=== PATIENT | female | born 1980 | race Caucasian/White ===

== ENCOUNTER 2016-02-07 12:55 | Outpatient (RCR) | payer BC ==
--- NOTE | 2016-02-05 19:14 | Diagnostic Imaging Report ---
EXAMINATION: KUB. INDICATION: Right-sided stones. COMPARISON: 02/04/15. FINDINGS: There is a 7 mm left flank lesion, likely a kidney stone. A 3 mm mid right kidney stone is also suspected. There is a calcification in the left side of the pelvis near the expected location of the ureterovesical junction. It is uncertain if its in the distal ureter or related to an overlying phlebolith. Surgical clips in the upright abdomen are seen. IMPRESSION: Suggestion of bilateral kidney stones and questionable distal left ureteric stone. Dictated by: Dictated on workstation # [id number]
[~2016-02-07 12:55] MED LIST: ACHYD1T PO; CALC500T7 PO; HYDR1TAB75 PO; HYOS0.1216 PO; IBP800T PO; NITR100C44 PO; OMEP20TA2 PO; ONDA4TAB2 PO; OXYC-12 PO; OXYC-200 PO; PHEN200T27 PO; PREN1TAB39 PO; SCR1T PO
[2016-02-12 22:41] LABS: STONE RISK AMMONIUM 22 mEq/24hr (14-62); STONE RISK CA OXALATE 2.42 (< 2.00); STONE RISK CALCIUM 126 mg/day (< 250); STONE RISK CITRATE 47 mg/day (> 320); STONE RISK CREATININE 1298 mg/day (600-1800); STONE RISK MAGNESIUM 50 mg/day (> 60); STONE RISK OXALATE 30 mg/day (< 45); STONE RISK PH 6.8 (5.5-7.0); STONE RISK PHOSPHOROUS 935 mg/day (< 1100); STONE RISK POTASSIUM 36 mEq/24hr (19-135); STONE RISK SODIUM 118 mEq/24hr (< 200); STONE RISK SODIUM URATES 3.55 (< 2.00); STONE RISK STRUVITE 10.55 (< 75.00); STONE RISK SULFITE 11 mmol/day (< 30); STONE RISK TOTAL VOLUME 1.09 L/day (> 2.00); STONE RISK URIC ACID 445 mg/day (< 700); STONE RISK URIC ACID SAT 0.32 (< 2.00)
== END 2016-02-10 08:57 | disposition home or self-care (01) ==
LOC: RAD 12:55
PROVIDERS: ATTEND Urology
DX: N20.9 Urinary calculus, unspecified (principal)
CPT/HCPCS: 36415; 74000; 82140; 82340; 82507; 82570; 83735; 83945; 83986; 84105; 84133; 84300; 84392; 84560

== ENCOUNTER → 2016-02-12 | Outpatient (CLI) | payer BC ==
--- NOTE | 2016-02-12 09:12 | Diagnostic Imaging Report ---
PROCEDURE: CT urinary tract, rule out kidney stone. TECHNIQUE: Multiple contiguous axial images were obtained through the abdomen and pelvis without the use of intravenous contrast. INDICATION: Nephrolithiasis. FINDINGS: The lung bases are clear. Liver appears normal. The gallbladder is surgically absent. The pancreas appears normal. Spleen is not enlarged. Adrenals appear normal. There are several stones in the right kidney. Right kidney is normal in size. There is no hydronephrosis. Left kidney is present. It is severely atrophied. There are calculi in upper and lower pole calyces of left kidney. There is also a stone in the distal left ureter at ureterovesical junction that measures 4 mm in diameter. There is some air in the urinary bladder. Uterus is present. Adnexa are unremarkable. Large and small intestines appear normal. Appendix is normal. IMPRESSION: Bilateral nephrolithiasis. Largest stone on the right kidney measures 5 mm in diameter. Largest stone on the left kidney measures 4 mm in diameter. Left kidney is severely atrophied and there is a calculus in the distal left ureter at the ureterovesical junction. There is no hydronephrosis in either kidney. Dictated by: Dictated on workstation # [id number]
== END ==
LOC: RAD 08:43
PROVIDERS: ATTEND Urology
DX: N20.0 Calculus of kidney (principal)
CPT/HCPCS: 74176

== ENCOUNTER → 2016-04-12 | Outpatient (CLI) | payer BC ==
--- OUTSIDE RECORDS SUMMARY | 2016-04-12 10:41 | XMS REPORT | Continuity of Care Document ---
Author Author [facility] Organization [facility] Address Unknown Phone Unavailable Allergies Active Description Code Type Severity Reaction Onset Reported/Identified Relationship to Patient Clinical Status Yes No Known Drug Allergies [id number] Drug Allergy Unknown N/ A 07/14/2007 Medications Problems Date Dx Coded Attending Type Code Diagnosis Diagnosed By 02/18/2008 Ot 592.1 02/18/2008 Ot 789.01 09/16/2010 Ot 648.91 09/16/2010 Ot 663.31 09/16/2010 Ot 664.01 09/16/2010 Ot V02.51 09/16/2010 Ot V27.0 12/20/2013 NATHANIEL WOMACK, JACOB Pennington Ot 587 12/20/2013 NATHANIEL WOMACK, JACOB Pennington Ot 789.06 03/26/2014 LAISHA WOMACK, JANUARY Vela Ot 592.0 CALCULUS OF KIDNEY 03/26/2014 LAISHA WOMACK, JANUARY Vela Ot 592.1 CALCULUS OF URETER 03/26/2014 LAISHA WOMACK, JANUARY Vela Ot 593.9 RENAL URETERAL DIS NOS 04/29/2014 LAISHA WOMACK, JANUARY Vela Ot 592.9 04/30/2014 LAISHA WOMACK, JANUARY A Ot 592.0 04/30/2014 LAISHA WOMACK, JANUARY A Ot 592.1 04/30/2014 LAISHA WOMACK, JANUARY Vela Ot V72.63 04/30/2014 LAISHA WOMACK, JANUARY Vela Ot V74.8 04/30/2014 LAISHA WOMACK, JANUARY Vela Ot 592.9 04/30/2014 LAISHA WOMACK, JANUARY A Ot 592.0 04/30/2014 LAISHA WOMACK, JANUARY Vela Ot 592.1 04/30/2014 LAISHA WOMACK, JANUARY Vela Ot V72.63 04/30/2014 LAISHA WOMACK, JANUARY Vela Ot V74.8 04/30/2014 Ot 592.9 04/30/2014 Ot 587 04/30/2014 Ot 592.1 04/30/2014 LAISHA WOMACK, JANUARY Vela Ot 592.9 04/30/2014 Ot 825.25 04/30/2014 Ot E849.0 04/30/2014 Ot E928.9 04/30/2014 Ot 789.00 04/30/2014 Ot 789.00 04/30/2014 Ot 592.9 04/30/2014 Ot 592.1 04/30/2014 Ot V45.89 05/17/2014 LAISHA WOMACK, JANUARY Vela Ot 592.0 05/17/2014 LAISHA WOMACK, JANUARY Vela Ot 592.1 05/17/2014 LAISHA WOMACK, JANUARY Vela Ot V72.63 05/17/2014 LAISHA WOMACK, JANUARY Vela Ot V74.8 05/17/2014 LAISHA WOMACK, JANUARY Vela Ot 592.0 05/17/2014 LAISHA WOMACK, JANUARY Vela Ot 592.1 05/17/2014 LAISHA WOMACK, JANUARY Vela Ot V72.63 05/17/2014 LAISHA WOMACK, JANUARY Vela Ot V74.8 05/17/2014 Ot 592.1 05/17/2014 Ot V45.89 05/17/2014 Ot 587 05/17/2014 Ot 592.1 05/24/2014 LAISHA WOMACK, JANUARY Vela Ot 592.9 05/29/2014 LAISHA WOMACK, JANUARY Vela Ot 592.0 05/29/2014 LAISHA WOMACK, JANUARY Vela Ot 592.1 05/29/2014 LAISHA WOMACK, JANUARY Vela Ot V72.63 05/29/2014 LAISHA WOMACK, JANUARY Vela Ot V74.8 05/29/2014 Ot 592.1 05/29/2014 Ot V45.89 05/29/2014 Ot 587 05/29/2014 Ot 592.1 07/10/2014 LAISHA WOMACK, JANUARY Vlea Ot 592.9 URINARY CALCULUS NOS 02/04/2015 LAISHA WOMACK, JANUARY Vela Ot 592.0 02/04/2015 LAISHA WOMACK, JANUARY Vela Ot 592.1 02/04/2015 LAISHAJANUARY VARNER MD Ot V72.63 02/04/2015 JANUARY INTERIANO MD Ot V74.8 02/04/2015 Ot 592.9 02/04/2015 Ot 592.1 02/04/2015 Ot V45.89 02/04/2015 Ot 587 02/04/2015 Ot 592.1 02/04/2015 LAISHA WOMACK, JANUARY Vela Ot 592.9 02/05/2015 LAISHA WOMACK, JANUARY Vela Ot N20.9 03/05/2015 JANUARY INTERIANO MD Ot 592.0 03/05/2015 LAISHA WOMACK, JANUARY Vela Ot 592.1 03/05/2015 JANUARY INTERIANO MD Ot V72.63 03/05/2015 JANUARY INTERIANO MD Ot V74.8 03/05/2015 Ot 592.9 03/05/2015 Ot 592.1 03/05/2015 Ot V45.89 03/05/2015 Ot 587 03/05/2015 Ot 592.1 03/05/2015 JANUARY INTERIANO MD Ot N20.9 03/12/2015 Ot 592.9 05/05/2015 JANUARY INTERIANO MD Ot N20.9 URINARY CALCULUS, UNSPECIFIED 02/05/2016 JANUARY INTERIANO MD Ot 592.0 CALCULUS OF KIDNEY 02/05/2016 JANUARY INTERIANO MD Ot 592.1 CALCULUS OF URETER 02/05/2016 JANUARY INTERIANO MD Ot V72.63 PRE-PROCEDURAL LABORATORY EXAMINATION 02/05/2016 JANUARY INTERIANO MD Ot V74.8 SCREEN-BACTERIAL DIS NEC 02/05/2016 Ot 592.9 URINARY CALCULUS NOS 02/05/2016 Ot 592.1 CALCULUS OF URETER 02/05/2016 Ot V45.89 POSTSURGICAL STATES NEC 02/05/2016 Ot 587 RENAL SCLEROSIS NOS 02/05/2016 Ot 592.1 CALCULUS OF URETER 02/05/2016 JANUARY INTERIANO MD Ot N20.9 URINARY CALCULUS, UNSPECIFIED 02/05/2016 JANUARY INTERIANO MD Ot 592.0 CALCULUS OF KIDNEY 02/05/2016 JANUARY INTERIANO MD Ot 592.1 CALCULUS OF URETER 02/05/2016 JANUARY INTERIANO MD, Ot V72.63 PRE-PROCEDURAL LABORATORY EXAMINATION 02/05/2016 JANUARY INTERIANO MD, Ot V74.8 SCREEN-BACTERIAL DIS NEC 02/05/2016 Ot 592.9 URINARY CALCULUS NOS 02/05/2016 Ot 592.1 CALCULUS OF URETER 02/05/2016 Ot V45.89 POSTSURGICAL STATES NEC 02/05/2016 Ot 587 RENAL SCLEROSIS NOS 02/05/2016 Ot 592.1 CALCULUS OF URETER 02/05/2016 JANUARY INTERIANO MD Ot N20.9 URINARY CALCULUS, UNSPECIFIED 02/10/2016 JANUARY INTERIANO MD Ot N20.9 URINARY CALCULUS, UNSPECIFIED 02/12/2016 JANUARY INTERIANO MD Ot N20.0 CALCULUS OF KIDNEY 02/13/2016 JANUARY INTERIANO MD Ot N20.0 CALCULUS OF KIDNEY 02/25/2016 JANUARY INTERIANO MD Ot N20.0 CALCULUS OF KIDNEY 02/25/2016 JANUARY INTERIANO MD Ot N20.0 CALCULUS OF KIDNEY Procedures Results Test Result Range CD3+CD4+ (T4 helper) cells/100 cells in blood - 02/07/16 12:15 Timed urine calcium measurement (mass/volume) 126 % < 250 Urine oxalate detection 30 < 45 Urine uric acid measurement (mass/volume) 445 % < 700 Urine citrate measurement (mass/volume) 47 % > 320 Urine pH measurement 6.8 5.5-7.0 24 hour urine specimen volume measurement 1.09 % > 2.00 Sodium urate/total calculus mass ratio by infrared spectroscopy 118 % < 200 Sulfites [presence] in urine by test strip 11 < 30 Urine phosphate measurement (mass/volume) 935 % < 1100 Urine magnesium measurement (mass/volume) 50 % > 60 Urine calcium oxalate measurement 2.42 < 2.00 Urine calcium phosphate crystals detection by computer assisted method 5.80 < 2.00 24 hour urine sodium urate (saturation fraction) 3.55 < 2.00 Triple phosphate crystals detection in urine sediment by light microscopy 10.55 < 75.00 24 hour urine uric acid (saturation fraction) 0.32 < 2.00 Urine ammonium measurement 22 % 14-62 Urine potassium measurement 36 % 19-135 24 hour urine creatinine measurement (mass/time) 1298 % 600-1800 Clinical label tacker review of results See Below NRG Encounters ACCT No. Visit Date/Time Discharge Status Pt. Type Provider Facility Loc./Unit Complaint [id number] 02/07/2016 12:55:00 2016 08:57:00 DIS Outpatient JANUARY INTERIANO MD [facility] RAD STONES [id number] 02/06/2015 12:30:00 2015 00:01:00 DIS Outpatient JANUARY INTERIANO MD [facility] LAB STONES [id number] 04/11/2014 15:28:00 2014 00:01:00 DIS Outpatient JANUARY INTERIANO MD [facility] LAB STONES [id number] 03/26/2014 06:56:00 2014 23:59:59 CLS Outpatient JANUARY INTERIANO MD [facility] SDC BILATERAL URETERAL AND RENAL STONES [id number] 03/25/2014 14:27:00 2014 23:59:59 CLS Outpatient JANUARY INTERIANO MD [facility] PREOP RIGHT RENAL STONE [id number] 12/20/2013 11:21:00 2013 16:12:00 DIS Emergency JACOB ARMSTRONG MD [facility] ER [id number] 02/12/2016 08:43:00 ACT Outpatient JANUARY INTERIANO MD [facility] RAD BILAT KIDNEY STONES [id number] 05/06/2015 00:08:00 PEN Preadmit JANUARY INTERIANO MD [facility] LAB STONES [id number] 04/30/2014 12:50:00 Document Registration [id number] 04/30/2014 12:50:00 Document Registration [id number] 04/30/2014 12:50:00 Document Registration [id number] 04/30/2014 12:50:00 Document Registration [id number] 04/11/2014 15:22:00 Document Registration [id number] 04/08/2014 13:30:00 Document Registration [id number] 03/25/2014 12:05:00 Document Registration [id number] 09/14/2010 09:15:00 Document Registration [id number] 02/18/2008 15:49:00 Document Registration [id number] 03/25/2006 14:40:00 Document Registration [id number] 03/25/2006 10:15:00 Document Registration [id number] 06/23/2005 21:13:00 Document Registration
--- NOTE | 2016-04-13 19:57 | Diagnostic Imaging Report ---
Digital mammogram bilateral screening. This is the patient's baseline study. At this time, there are no current complaints. The current study was also evaluated with a Computer Aided Detection (CAD) system. FINDINGS: There are scattered fibroglandular densities in both breasts which could obscure a lesion. There is no primary or secondary sign of malignancy noted. IMPRESSION: 1. There is no evidence for malignancy. 2. The patient should have her annual bilateral screening mammogram on schedule in April of 2017. ACR BI-RADS Category 1: Negative. Result letter will be mailed to the patient. Note: At least 10% of breast cancer is not imaged by mammography. Dictated by: Dictated on workstation # [id number]
== END ==
LOC: RAD 10:36
PROVIDERS: ATTEND Obstetrics & Gynecology
DX: Z12.31 Encounter for screening mammogram for malignant neoplasm of breast (principal)
CPT/HCPCS: 77067

== ENCOUNTER 2017-01-27 15:47 | Outpatient (RCR) | payer BC ==
[2017-02-10] MEDS ORDERED: POTA15TA9 PO (14:40)
[2017-02-16] MEDS ORDERED: NITR-68 PO (10:15)
[2017-02-16] MEDS ORDERED: HYDR-3870 PO (10:15)
[2017-02-16] MEDS ORDERED: TAMS0.4C98 PO (10:15)
== END 2017-04-27 | disposition home or self-care (01) ==
LOC: LAB 15:47
PROVIDERS: ATTEND Urology
DX: Z87.442 Personal history of urinary calculi (principal)
CPT/HCPCS: 36415; 82140; 82340; 82507; 82570; 83735; 83945; 83986; 84105; 84133; 84300; 84392; 84560

== ENCOUNTER → 2017-01-27 | Outpatient (CLI) | payer BC ==
--- NOTE | 2017-01-27 16:37 | Diagnostic Imaging Report ---
INDICATION: Nephrolithiasis. FINDINGS: There is a cluster of calcifications projecting over the inferior pole of the left kidney measuring 4 mm in diameter and a 1.5 mm calcification projecting over the upper pole of the left kidney. There is a 2 mm calcification projecting over the mid right kidney. There is a 4 mm calcification projecting over the upper pole of the right kidney. IMPRESSION: Probable bilateral nephrolithiases. Dictated by: Dictated on workstation # [id number]
== END ==
LOC: RAD 15:41
PROVIDERS: ATTEND Urology
DX: N20.0 Calculus of kidney (principal)
CPT/HCPCS: 74000

== ENCOUNTER 2017-02-10 14:34 | Outpatient (CLI) | payer BC ==
[~2017-02-10] VITALS: Ht 160 cm; Wt 72.6 kg
[2017-02-10] MEDS ORDERED: POTA15TA9 PO (14:40)
== END 2017-02-10 14:47 ==
LOC: PREOP 14:34
PROVIDERS: ATTEND Urology
DX: Z01.818 Encounter for other preprocedural examination (principal); N20.0 Calculus of kidney

== ENCOUNTER 2017-02-16 07:42 | Day surgery (SDC) | payer BC ==
[~2017-02-16] VITALS: Ht 160 cm; Wt 72.6 kg
--- NOTE | 2017-02-16 07:07 | Progress Note-Pre Operative ---
Pre-Operative Progress Note H&P Reviewed The H&P was reviewed, patient examined and no changes noted. Date Seen by Provider: Feb 16, 2017 Time Seen by Provider: 07:07 Date H&P Reviewed: Feb 16, 2017 Time H&P Reviewed: 07:07 Pre-Operative Diagnosis: RT RENAL STONE JANUARY INTERIANO MD Feb 16, 2017 7:07 am
--- NOTE | 2017-02-16 07:08 | Progress Note-Post Operative ---
Post-Operative Progess Note Surgeon (s)/Cap Blocker (s) Surgeon JANUARY INTERIANO MD Cap Blocker: N/A Pre-Operative Diagnosis RT RENAL STONE Post-Operative Diagnosis SAME Procedure & Operative Findings Date of Procedure 02/16/17 Procedure Performed/Findings RT ESWL Anesthesia Type GENERAL Estimated Blood Loss Estimated blood loss (mL): N/A Specimens/Packing Specimens Removed N/A Packing: N/A JANUARY INTERIANO MD Feb 16, 2017 7:08 am
--- NOTE | 2017-02-16 07:09 | Discharge Inst-Urology ---
Discharge Inst-Urology Discharge Medications New, Converted, or Re-newed RX: RX on Chart Patient Instructions/Follow Up Plan Please make appointment to been seen in office in 2 weeks. KUB prior to it KUB on way home Post ESWL instructions Increase oral fluids for 48 hours and then as needed. Diet and Activity as tolerated. If questions or concerns contact your physician Or seek help at emergency department. JANUARY INTERIANO MD Feb 16, 2017 7:09 am
[~2017-02-16 07:42] MED LIST changes: +POTA15TA9 PO
[2017-02-16] MEDS ORDERED: LACTATED RINGERS 1,000 ML IV PRN ×2 (07:52→08:22)
[2017-02-16] MEDS ORDERED: ceFAZolin INJECTION 1,000 MG in NS (IVPB) 50 ML IV ONE (08:00)
[2017-02-16 08:05] VITALS: BP 128/89
[2017-02-16] MEDS ORDERED: FAMOTIDINE 20MG/2ML IV (PEPCID) IVP ONE (08:20)
[2017-02-16] MEDS ORDERED: ONDANSETRON 4 MG/2 ML (SDV) Z0FRAN IVP ONE (08:20)
[2017-02-16] MEDS ORDERED: MIDAZOLAM 2 MG/2 ML (VERSED) VIAL IV ONE (08:30)
[2017-02-16] MEDS ORDERED: fentaNYL INJECTION 100 MCG/2 ML AMP IV ONE (08:30)
[2017-02-16] MEDS ORDERED: DEXAMETHASONE 10 MG/ML (DECADRON) 1 ML VIAL ONE (08:33)
[2017-02-16] MEDS ORDERED: SEVOFLURANE (ULTANE) 15 ML INHAL SOLN ONE (08:33)
[2017-02-16] MEDS ORDERED: ONDANSETRON 4 MG/2 ML (SDV) Z0FRAN ONE (08:33)
[2017-02-16] MEDS ORDERED: proPOfol 200 MG/20 ML (DIPRIVAN) VIAL IV ONE (08:33)
[2017-02-16] MEDS ORDERED: LIDOCAINE PF 2% 5 ML (XYLOCAINE) VIAL ONE (08:33)
[2017-02-16] MEDS ORDERED: PROPOFOL INJECTION 50 ML IV ONE (09:10)
[2017-02-16] MEDS ORDERED: KETOROLAC 30 MG/ML VIAL ONE (09:10)
[2017-02-16] MEDS ORDERED: FUROSEMIDE 40 MG/4 ML INJ (LASIX) ONE (09:10)
[2017-02-16] MEDS ORDERED: morphine INJ 10 MG/ML 1ML (SYR OR VIAL) IVP PRN (09:30)
[2017-02-16] MEDS ORDERED: ONDANSETRON 4 MG/2 ML (SDV) Z0FRAN IVP PRN (09:30)
[2017-02-16 09:50] VITALS: BP 116/77
[2017-02-16] MEDS ORDERED: HYDR-3874 PO (10:15)
[2017-02-16] MEDS ORDERED: NITR-68 PO (10:15)
[2017-02-16] MEDS ORDERED: TAMS0.4C98 PO (10:15)
[2017-02-16 10:20] VITALS: BP 115/71
[2017-02-16 10:40] VITALS: BP 115/71
--- NOTE | 2017-02-16 11:10 | Diagnostic Imaging Report ---
EXAMINATION: Abdomen at 1037 hours. INDICATION: Post op ESWL. TECHNIQUE: Two supine views were obtained. FINDINGS: The exam performed on 01/27/2017 noted nonobstructive calculi overlying both kidneys. In the interval since the prior study, the patient has undergone ESWL. The calculi seen previously are still evident although they are difficult to evaluate as both kidneys are obscured by bowel gas and fecal material. There are no new calcifications along the expected paths of the ureters. The small rectangular calcification low in the pelvis on the right seen previously is again evident and no different. IMPRESSION: 1. There are still calculi overlying each kidney. The calculi are difficult to evaluate, however, due to the bowel gas and fecal material. 2. No new abnormality has developed. Dictated by: Dictated on workstation # [id number]
--- NOTE | 2017-02-16 19:08 | OPERATIVE REPORT ---
DATE OF SERVICE: 02/16/2017 PREOPERATIVE DIAGNOSES: 1. Bilateral renal stones. 2. Nonfunctioning left kidney. POSTOPERATIVE DIAGNOSES: 1. Bilateral renal stones. 2. Nonfunctioning left kidney. OPERATION PERFORMED: Right ESWL. SURGEON: Geoffrey Interiano M.D. ANESTHESIA: General. COMPLICATIONS: None. DESCRIPTION OF PROCEDURE: With the patient supine on the ESWL table, we localized the main bigger stone in the upper mid part of the kidney. The second one was a small 2 mm in the lower pole; we could not even see it on fluoroscopy. We delivered 2000 shocks at kV of 5 with complete fragmentation of the stone, which was not visualized anymore. The patient received 40 mg of Lasix and 30 mg of Toradol IV at the end of the procedure. She tolerated the procedure and anesthesia well and was sent to recovery room in stable condition. Job ID: [id number] DocumentID: [id number] Dictated Date: 02/16/2017 09:11:28 Software Trainer Date: 02/16/2017 15:38:05 Dictated By: GEOFFREY INTERIANO MD
--- OUTSIDE RECORDS SUMMARY | 2017-02-17 18:07 | XMS REPORT | Continuity of Care Document ---
Author Author [facility] Organization [facility] Address Unknown Phone Unavailable Allergies Active Description Code Type Severity Reaction Onset Reported/Identified Relationship to Patient Clinical Status Yes No Known Drug Allergies [id number] Drug Allergy Unknown N/A 07/14/2007 Medications There is no data. Problems Date Dx Coded Attending Type Code Diagnosis Diagnosed By 02/18/2008 Ot 592.1 02/18/2008 Ot 789.01 09/16/2010 Ot 648.91 09/16/2010 Ot 663.31 09/16/2010 Ot 664.01 09/16/2010 Ot V02.51 09/16/2010 Ot V27.0 12/20/2013 NATHANIEL WOMACK, JACOB Pennington Ot 587 12/20/2013 JACOB ARMSTRONG MD Ot 789.06 03/26/2014 LAISHA WOMACK, JANUARY Vela [...] Vela Ot 592.9 04/30/2014 LAISHA WOMACK, JANUARY Vela Ot 592.0 04/30/2014 LAISHA WOMACK, JANUARY Vela Ot 592.1 04/30/2014 LAISHA WOMACK, JANUAYR Vela Ot V72.63 04/30/2014 LAISHA WOMACK, JANUARY A Ot V74.8 04/30/2014 Ot 592.9 04/30/2014 Ot 587 04/30/2014 Ot 592.1 04/30/2014 LAISHA WOMACK, JANUARY Vela Ot 592.9 04/30/2014 Ot 825.25 04/30/2014 Ot E849.0 04/30/2014 Ot E928.9 04/30/2014 Ot 789.00 04/30/2014 Ot 789.00 04/30/2014 Ot 592.9 04/30/2014 Ot 592.1 04/30/2014 Ot V45.89 05/17/2014 LAISHA WOMACK, JANUARY Vela Ot 592.0 05/17/2014 LAISHA WOMACK, JANUARY Vela Ot 592.1 05/17/2014 LAISHA WOMCAK, JANUARY A Ot V72.63 05/17/2014 LAISHA WOMACK, JANUARY A Ot V74.8 05/17/2014 LAISHA WOMACK, JANUARY A Ot 592.0 05/17/2014 LAISHA WOMACK, JANUARY A Ot 592.1 05/17/2014 LAISHA WOMACK, JANUARY A Ot V72.63 05/17/2014 LAISHA WOMACK, JANUARY A Ot V74.8 05/17/2014 Ot 592.1 05/17/2014 Ot V45.89 05/17/2014 Ot 587 05/17/2014 Ot 592.1 05/24/2014 LAISHA WOMACK, JANUARY Mirian Ot 592.9 05/29/2014 LAISHA WOMACK, JANUARY Vela Ot 592.0 05/29/2014 LAISHA WOMACK, JANUARY Vela Ot 592.1 05/29/2014 LAISHA WOMACK, JANUARY A Ot V72.63 05/29/2014 LAISHA WOMACK, JANUARY Vela Ot V74.8 05/29/2014 Ot 592.1 05/29/2014 Ot V45.89 05/29/2014 Ot 587 05/29/2014 Ot 592.1 07/10/2014 LAISHA WOMACK, JANUARY Vela Ot 592.9 URINARY CALCULUS NOS 02/04/2015 LAISHA WOMACK, JANUARY Vela Ot 592.0 02/04/2015 LAISHA WOMACK, JANUARY Vela Ot 592.1 02/04/2015 JANUARY INTERIANO MD Ot V72.63 02/04/2015 JANUARY INTERIANO MD Ot V74.8 02/04/2015 Ot 592.9 02/04/2015 Ot 592.1 02/04/2015 Ot V45.89 02/04/2015 Ot 587 02/04/2015 Ot 592.1 02/04/2015 JANUARY INTERIANO MD Ot 592.9 02/05/2015 JANUARY INTERIANO MD Ot N20.9 03/05/2015 JANUARY INTERIANO MD Ot 592.0 03/05/2015 JANUARY INTERIANO MD Ot 592.1 03/05/2015 JANUARY INTERIANO MD Ot [...] INTERIANO MD Ot N20.0 CALCULUS OF KIDNEY 04/12/2016 JANUARY INTERIANO MD Ot N20.0 CALCULUS OF KIDNEY 04/13/2016 MONSERRAT ALBERTO MD Ot Z12.31 ENCNTR SCREEN MAMMOGRAM FOR MALIGNANT NE 04/21/2016 MONSERRAT ALBERTO MD Ot Z12.31 ENCNTR SCREEN MAMMOGRAM FOR MALIGNANT NE 07/29/2016 MONSERRAT ALBERTO MD Ot Z12.31 ENCNTR SCREEN MAMMOGRAM FOR MALIGNANT NE 02/01/2017 JANUARY INTERIANO MD Ot Z87.442 PERSONAL HISTORY OF URINARY CALCULI 02/09/2017 JANUARY INTERIANO MD Ot N20.0 CALCULUS OF KIDNEY 02/11/2017 JANUARY INTERIANO MD Ot N20.0 CALCULUS OF KIDNEY 02/11/2017 JANUARY INTERIANO MD Ot Z01.818 ENCOUNTER FOR OTHER PREPROCEDURAL EXAMIN 02/16/2017 JANUARY INTERIANO MD, Ot Z87.442 PERSONAL HISTORY OF URINARY CALCULI Procedures There is no data. Results Test Result Range CD3+CD4+ (T4 helper) [...] creatinine measurement (mass/time) 1298 % 600-1800 Clinical promotional demonstrator review of results See Below NRG CD3+CD4+ (T4 helper) cells/100 cells in blood - 01/29/17 09:45 Timed urine calcium measurement (mass/volume) 149 % < 250 Urine oxalate detection 37 < 45 Urine uric acid measurement (mass/volume) 525 % < 700 Urine citrate measurement (mass/volume) 289 % > 320 Urine pH measurement 7.4 5.5-7.0 24 hour urine specimen volume measurement 1.51 % > 2.00 Sodium urate/total calculus mass ratio by infrared spectroscopy 148 % < 200 Sulfites [presence] in urine by test strip 8 < 30 Urine phosphate measurement (mass/volume) 610 % < 1100 Urine magnesium measurement (mass/volume) 78 % > 60 Urine calcium oxalate measurement 2.05 < 2.00 Urine calcium phosphate crystals detection by computer assisted method 3.63 < 2.00 24 hour urine sodium urate (saturation fraction) 2.94 < 2.00 Triple phosphate crystals detection in urine sediment by light microscopy 18.76 < 75.00 24 hour urine uric acid (saturation fraction) 0.07 < 2.00 Urine ammonium measurement 16 % 14-62 Urine potassium measurement 49 % 19-135 24 hour urine creatinine measurement (mass/time) 1455 % 600-1800 Clinical promotional demonstrator review of results See Below NRG Urine beta human chorionic gonadotropin (hCG) measurement - 02/16/17 07:50 Urine beta human chorionic gonadotropin (hCG) measurement NEGATIVE NEGATIVE Methicillin resistant Staphylococcus aureus (MRSA) screening culture - 07:50 Methicillin resistant Staphylococcus aureus (MRSA) screening culture NEG NRG Encounters ACCT No. Visit Date/Time Discharge Status Pt. Type Provider Facility Loc./Unit Complaint [id number] 02/16/2017 07:42:00 02/16/2017 10:40:00 DIS Outpatient JANUARY INTERIANO MD [facility] SDC BILATERAL RENAL STONE, NONFUNCTIONING LT KIDNEY [id number] 02/10/2017 14:34:00 02/10/2017 14:47:00 DIS Outpatient JANUARY INTERIANO MD [facility] PREOP BILATERAL RENAL STONE [id number] 01/27/2017 15:47:00 01/27/2017 23:59:59 CLS Outpatient JANUARY INTERIANO MD [facility] LAB H/O STONES [id number] 01/27/2017 15:41:00 01/27/2017 23:59:59 CLS Outpatient JANUARY INTERIANO MD [facility] RAD H/O STONES [id number] 04/12/2016 10:36:00 04/12/2016 23:59:59 CLS Outpatient MONSERRAT ALBERTO MD [facility] RAD SCREENING [id number] 02/12/2016 08:43:00 02/12/2016 23:59:59 CLS Outpatient JANUARY INTERIANO MD [facility] RAD BILAT KIDNEY STONES [id number] 02/07/2016 12:55:00 02/10/2016 08:57:00 DIS Outpatient JANUARY INTERIANO MD [facility] RAD STONES [id number] 05/06/2015 00:08:00 05/06/2015 23:59:59 CLS Preadmit JANUARY INTERIANO MD [facility] LAB STONES [id number] 02/06/2015 12:30:00 05/05/2015 00:01:00 DIS Outpatient JANUARY INTERIANO MD [facility] LAB STONES [id number] 04/11/2014 15:28:00 07/10/2014 00:01:00 DIS Outpatient JANUARY INTERIANO MD [facility] LAB STONES [id number] 03/26/2014 06:56:00 03/26/2014 23:59:59 CLS Outpatient JANUARY INTERIANO MD [facility] SDC BILATERAL URETERAL AND RENAL STONES [id number] 03/25/2014 14:27:00 03/25/2014 23:59:59 CLS Outpatient JANUARY INTERIANO MD [facility] PREOP RIGHT RENAL STONE [id number] 12/20/2013 11:21:00 12/20/2013 16:12:00 DIS Emergency JACOB ARMSTRONG MD [facility] ER [id number] 04/30/2014 12:50:00 Document Registration [id number] 04/30/2014 12:50:00 Document Registration [id number] 04/30/2014 12:50:00 Document Registration [id number] 04/30/2014 12:50:00 Document Registration [id number] 04/11/2014 15:22:00 Document Registration [id number] 04/08/2014 13:30:00 Document Registration [id number] 03/25/2014 12:05:00 Document Registration [id number] 09/14/2010 09:15:00 Document Registration [id number] 02/18/2008 15:49:00 Document Registration [id number] 03/25/2006 14:40:00 Document Registration [id number] 03/25/2006 10:15:00 Document Registration [id number] 06/23/2005 21:13:00 Document Registration
== END 2017-02-16 10:40 | disposition home or self-care (01) ==
LOC: SDC 07:42
PROVIDERS: ATTEND Urology
DX: N20.0 Calculus of kidney (principal); N28.9 Disorder of kidney and ureter, unspecified; Z11.2 Encounter for screening for other bacterial diseases
CPT/HCPCS: 74018; 84703; 87081

== ENCOUNTER → 2017-03-02 | Outpatient (CLI) | payer BC ==
[~2017-03-02] MED LIST changes: +HYDR-3874 PO; +NITR-68 PO; +TAMS0.4C98 PO
--- NOTE | 2017-03-02 14:49 | Diagnostic Imaging Report ---
INDICATION: Bilateral renal calculi, status post right-sided lithotripsy. TIME OF EXAM: 2:16 PM. COMPARISON: 02/16/2017. FINDINGS: Surgical clips in the gallbladder fossa are noted. Multiple small calcific densities are noted overlying both kidneys. There appears to be some fragmentation of the calculi, likely owing to the recent lithotripsy. No definite calculus along the course of the ureters is seen. The bowel gas pattern is unremarkable. IMPRESSION: Fragmentation of bilateral renal calculi. No ureteral calculi are detected. Dictated by: Dictated on workstation # [id number]
== END ==
LOC: RAD 13:42
PROVIDERS: ATTEND Urology
DX: N20.0 Calculus of kidney (principal); Z98.890 Other specified postprocedural states
CPT/HCPCS: 74018

== ENCOUNTER 2017-05-03 12:18 | Observation (INO) | payer BC ==
[~2017-05-03] VITALS: Ht 160 cm; Wt 78.7 kg
[~2017-05-03 12:18] MED LIST changes: +HYDR-3870 PO; -HYDR-3874 PO
[2017-05-03] MEDS ORDERED: KETOROLAC 30 MG/ML VIAL ONE (12:27)
[2017-05-03] MEDS ORDERED: KETOROLAC 30 MG/ML VIAL IVP ONE (12:30)
[2017-05-03 12:38] LABS: BILIRUBIN,URINE NEGATIVE (NEGATIVE); CLARITY,URINE CLEAR; COLOR,URINE YELLOW; GLUCOSE, URINE (UA) NEGATIVE (NEGATIVE); KETONES,URINE NEGATIVE (NEGATIVE); LEUKOCYTE ESTERASE ,URINE NEGATIVE (NEGATIVE); NITRITE,URINE POSITIVE (NEGATIVE); PH,URINE 5 (5-9); PROTEIN,URINE NEGATIVE (NEGATIVE); UROBILINOGEN,URINE NORMAL (NORMAL)
[2017-05-03 12:42] LABS: BASOPHILS % (AUTO) 0 % (0-10); EOSINOPHILS # (AUTO) 0.1 10^3/uL (0.0-0.3); EOSINOPHILS % (AUTO) 1 % (0-10); HEMATOCRIT 41 % (35-52); HEMOGLOBIN 14.1 G/DL (11.5-16.0); LYMPHOCYTES # (AUTO) 1.5 X 10^3 (1.0-4.0); LYMPHOCYTES % (AUTO) 21 % (12-44); MEAN CORPUSCULAR HEMOGLOBIN 29 PG (25-34); MEAN CORPUSCULAR HGB CONC 34 G/DL (32-36); MEAN CORPUSCULAR VOLUME 85 FL (80-99); MEAN PLATELET VOLUME 9.8 FL (7.4-10.4); MONOCYTES # (AUTO) 0.8 X 10^3 (0.0-1.0); MONOCYTES % (AUTO) 11 % (0-12); NEUTROPHILS # (AUTO) 4.7 X 10^3 (1.8-7.8); NEUTROPHILS % (AUTO) 66 % (42-75); PLATELET COUNT 258 10^3/uL (130-400); RED BLOOD COUNT 4.83 10^6/uL (4.35-5.85); RED CELL DISTRIBUTION WIDTH 12.5 % (10.0-14.5); WHITE BLOOD COUNT 7.1 10^3/uL (4.3-11.0)
[2017-05-03 12:45] LABS: BACTERIA,URINE NEGATIVE /HPF
[2017-05-03] MEDS ORDERED: fentaNYL INJECTION 100 MCG/2 ML AMP IVP ONE ×2 (12:45→15:30)
[2017-05-03] MEDS ORDERED: NS IV 1000 ML 1,000 ML IV SCH (12:45)
[2017-05-03 12:46] LABS: SQUAMOUS EPITHELIAL CELL,UR RARE /HPF
--- NOTE | 2017-05-03 12:47 | ED Abdominal Pain ---
General Chief Complaint: -Female Stated Complaint: UTI/POSS KIDNEY STONE History of Present Illness Date Seen by Provider: May 03, 2017 Time Seen by Provider: 12:42 Initial Comments Patient is a 37-year-old female who presents to the emergency room with complaints of UTI symptoms and possible kidney stone. 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 She reports that only one of her kidneys is functioning properly and has had recent kidney stones. Timing/Duration: 1-2 Days Severity/Quality: Moderate, Severe Location: Suprapubic Radiation: Flank Activities at Onset: None Associated Symptoms: Denies Symptoms Allergies and Home Medications Allergies Coded Allergies: No Known Drug Allergies (Verified , 07/14/07) Home Medications Hydrocodone/Acetaminophen 1 Each Tablet, 1-2 EACH PO Q4H PRN for PAIN Prescribed by: ELISABETH MARTINEZ on 02/16/17 1015 Nitrofurantoin Macrocrystal 100 Mg Capsule, 100 MG PO BID Prescribed by: ELISABETH MARTINEZ on 02/16/17 1015 Potassium Citrate 15 Meq Tab, 15 MEQ PO TID, (Reported) Tamsulosin HCl 0.4 Mg Cap, 0.4 MG PO DAILY Prescribed by: ELISABETH MARTINEZ on 02/16/17 1015 Patient Home Medication List Home Medication List Reviewed: Yes Review of Systems Constitutional: no symptoms reported, see HPI EENTM: No Symptoms Reported, See HPI Respiratory: No Symptoms Reported, See HPI Cardiovascular: No Symptoms Reported, See HPI Gastrointestinal: No Symptoms Reported, See HPI Genitourinary: See HPI, Burning, Frequency, Flank Pain, Pain, Urgency Musculoskeletal: no symptoms reported, see HPI Skin: no symptoms reported, see HPI Psychiatric/Neurological: No Symptoms Reported, See HPI Endocrine: No Symptoms Reported, See HPI Hematologic/Lymphatic: No Symptoms Reported, See HPI Past Ycjdgrs-Jbtsqn-Xsrngy Hx Patient Social History Recent Foreign Travel: No Contact w/Someone Who Travel: No Recent Hopitalizations: No Immunizations Up To Date Tetanus Booster (TDap): Unknown Seasonal Allergies Seasonal Allergies: Yes Surgeries Surgeries: Gallbladder, Tubal Ligation Reproductive System Hx Reproductive Disorders: No Genitourinary Genitourinary Disorders: Kidney Stones Gastrointestinal Gastrointestinal Disorders: Pancreatitis Physical Exam Vital Signs VS - Last 72 Hours, by Label 05/03/17 12:24 Temp 99.3 Pulse 101 Resp 22 B/P (MAP) 122/96 (105) O2 Delivery Room Air Capillary Refill : General Appearance: WD/WN, moderate distress HEENT: PERRL/EOMI, normal ENT inspection Neck: non-tender Respiratory: no respiratory distress, no accessory muscle use Cardiovascular: regular rate, rhythm, no murmur Gastrointestinal: normal bowel sounds, soft, tenderness Neurologic/Psychiatric: alert, normal mood/affect, oriented x 3 Skin: normal color, warm/dry Progress/Results/Core Measures Results/Orders Lab Results Laboratory Tests Test 05/03/17 12:22 05/03/17 12:26 Range/Units Urine Color YELLOW Urine Clarity CLEAR Urine pH 5 5-9 Urine Specific [place] 1.005 L 1.016-1.022 Urine Protein NEGATIVE NEGATIVE Urine Glucose (UA) NEGATIVE NEGATIVE Urine Ketones NEGATIVE NEGATIVE Urine Nitrite POSITIVE H NEGATIVE Urine Bilirubin NEGATIVE NEGATIVE Urine Urobilinogen NORMAL NORMAL MG/DL Urine Leukocyte Esterase NEGATIVE NEGATIVE Urine RBC (Auto) NEGATIVE NEGATIVE Urine RBC NONE /HPF Urine WBC NONE /HPF Urine Squamous Epithelial Cells RARE /HPF Urine Crystals NONE /LPF Urine Bacteria NEGATIVE /HPF Urine Casts NONE /LPF Urine Mucus NEGATIVE /LPF Urine Culture Indicated NO White Blood Count 7.1 4.3-11.0 10^3/uL Red Blood Count 4.83 4.35-5.85 10^6/uL Hemoglobin 14.1 11.5-16.0 G/DL Hematocrit 41 35-52 % Mean Corpuscular Volume 85 80-99 FL Mean Corpuscular Hemoglobin 29 25-34 PG Mean Corpuscular Hemoglobin Concent 34 32-36 G/DL Red Cell Distribution Width 12.5 10.0-14.5 % Platelet Count 258 130-400 10^3/uL Mean Platelet Volume 9.8 7.4-10.4 FL Neutrophils (%) (Auto) 66 42-75 % Lymphocytes (%) (Auto) 21 12-44 % Monocytes (%) (Auto) 11 0-12 % Eosinophils (%) (Auto) 1 0-10 % Basophils (%) (Auto) 0 0-10 % Neutrophils # (Auto) 4.7 1.8-7.8 X 10^3 Lymphocytes # (Auto) 1.5 1.0-4.0 X 10^3 Monocytes # (Auto) 0.8 0.0-1.0 X 10^3 Eosinophils # (Auto) 0.1 0.0-0.3 10^3/uL Basophils # (Auto) 0.0 0.0-0.1 10^3/uL Sodium Level 134 L 135-145 MMOL/L Potassium Level 3.5 L 3.6-5.0 MMOL/L Chloride Level 101 98-107 MMOL/L Carbon Dioxide Level 21 21-32 MMOL/L Anion Gap 12 5-14 MMOL/L Blood Urea Nitrogen 25 H 7-18 MG/DL Creatinine 1.52 H 0.60-1.30 MG/DL Estimat Glomerular Filtration Rate 38 BUN/Creatinine Ratio 16 Glucose Level 83 70-105 MG/DL Calcium Level 9.7 8.5-10.1 MG/DL Total Bilirubin 0.4 0.1-1.0 MG/DL Aspartate Amino Transf (AST/SGOT) 61 H 5-34 U/L Alanine Aminotransferase (ALT/SGPT) 113 H 0-55 U/L Alkaline Phosphatase 51 40-136 U/L Total Protein 8.0 6.4-8.2 GM/DL Albumin 4.3 3.2-4.5 GM/DL My Orders Medications Given in ED Current Medications Medications Dose Ordered Sig/Lily Route Start Time Stop Time Status Last Admin Dose Admin Ketorolac Tromethamine 30 mg ONCE ONCE IVP 05/03/17 12:30 05/03/17 12:32 DC 05/03/17 12:30 30 MG Vital Signs/I&O Vital Sign - Last 12Hours 05/03/17 12:24 Temp 99.3 Pulse 101 Resp 22 B/P (MAP) 122/96 (105) O2 Delivery Room Air Diagnostic Imaging Diagonstic Imaging: CT Comments NAME: ELISABETH CAMPOS [facility] REC#: [id number] PT STATUS: REG ER : 1980 PHYSICIAN: WILMER CARBALLO APRN ADMIT DATE: 05/03/17/ER Draft Date of Exam:05/03/17 ABDOMEN/KUB 1VIEW INDICATION: Right kidney stone. TIME OF EXAM: 2:35 p.m. COMPARISON: Correlation is made to prior study from 03/02/2017. FINDINGS: Bilateral renal calculi are again noted. Calcific density in the medial aspect of the right hemipelvis is noted correlating with the CT abnormality and consistent with a right UVJ calculus. The bowel gas pattern is unremarkable. Surgical clips are noted in the right upper quadrant. IMPRESSION: Bilateral nephrolithiasis and right UVJ calculus. Dictated on workstation # [id number] Dict: 05/03/17 1421 Trans: 05/03/17 1423 [id number] Interpreted by: ADAIR LA MD Electronically signed by: NAME: ELISABETH CAMPOS [facility] REC#: [id number] PT STATUS: REG ER : 1980 PHYSICIAN: WILMER CARBALLO APRN ADMIT DATE: 05/03/17/ER Draft Date of Exam:05/03/17 CT ABD/PELVIS WO(KIDNEY STONE) PROCEDURE: CT urinary tract, rule out kidney stone. TECHNIQUE: Multiple contiguous axial images were obtained through the abdomen and pelvis without the use of intravenous contrast. INDICATION: Bladder pain and history of kidney stones. Comparison is made with prior CT from 02/12/2016. FINDINGS: The lung bases are clear. No discrete liver mass is identified. The gallbladder is surgically absent. Pancreas and spleen are unremarkable. No adrenal mass is detected. Marked atrophy of the left kidney which again contains multiple nonobstructing calculi is again seen. Tiny 2-3 mm distal left ureteric calculus remains present and similar to prior exam. Right kidney again contains numerous nonobstructing calculi. There has been development of moderate right sided hydroureteronephrosis. The dilated right ureter is traced into the pelvis where there is a 6 mm calculus located at the right UVJ. The aorta is unremarkable. The small and large bowel loops are normal caliber. The appendix is unremarkable. There is no ascites. Uterus is unremarkable. There is a cyst involving the left ovary measuring 2.7 cm. IMPRESSION: 1. Bilateral nonobstructing nephrolithiasis and severe atrophy of the left kidney, similar to exam from 02/12/2016. There is an unchanged small distal left ureteric calculus. Note is made of a 6 mm calculus at the right UVJ producing moderate hydroureteronephrosis. 2. 2.7 cm left ovarian cyst. Dictated on workstation # [id number] Dict: 05/03/17 1338 Trans: 05/03/17 1346 [facility] [id number] Interpreted by: ADAIR LA MD Electronically signed by: Departure Communication (Admissions) Time/Spoke to Admitting Phy: 14:[address] Mendoza. Since pt has only 1 functioning kidney and has obstruction with 6mm stone and slightly elevated BUN/Cr from baseline, will admit, hydrate, strain urine, rocephin, plan for stone removal in AM. Impression Impression: Primary Impression: Atrophy of left kidney Additional Impression: Right distal ureteral calculus Disposition: ADMITTED INPATIENT Condition: Stable Admissions Decision to Admit Reason: Admit from ER (General) Decision to Admit/Date: May 03, 2017 Time/Decision to Admit Time: 14:17 Departure-Patient Inst. Referrals: MAGALIE CHAVARRIA MD (PCP) Primary Care Physician GIOVANY DONNELLY APRN (Family) Primary Care Physician WILMER CARBALLO APRN May 03, 2017 12:47
[2017-05-03 13:02] LABS: ALBUMIN 4.3 GM/DL (3.2-4.5); BILIRUBIN,TOTAL 0.4 MG/DL (0.1-1.0); CALCIUM 9.7 MG/DL (8.5-10.1); CREATININE SERUM 1.52 MG/DL (0.60-1.30); POTASSIUM 3.5 MMOL/L (3.6-5.0)
--- NOTE | 2017-05-03 13:46 | Diagnostic Imaging Report ---
PROCEDURE: CT urinary tract, rule out kidney stone. TECHNIQUE: Multiple contiguous axial images were obtained through the abdomen and pelvis without the use of intravenous contrast. INDICATION: Bladder pain and history of kidney stones. Comparison is made with prior CT from 02/12/2016. FINDINGS: The lung bases are clear. No discrete liver mass is identified. The gallbladder is surgically absent. Pancreas and spleen are unremarkable. No adrenal mass is detected. Marked atrophy of the left kidney which again contains multiple nonobstructing calculi is again seen. Tiny 2-3 mm distal left ureteric calculus remains present and similar to prior exam. Right kidney again contains numerous nonobstructing calculi. There has been development of moderate right sided hydroureteronephrosis. The dilated right ureter is traced into the pelvis where there is a 6 mm calculus located at the right UVJ. The aorta is unremarkable. The small and large bowel loops are normal caliber. The appendix is unremarkable. There is no ascites. Uterus is unremarkable. There is a cyst involving the left ovary measuring 2.7 cm. IMPRESSION: 1. Bilateral nonobstructing nephrolithiasis and severe atrophy of the left kidney, similar to exam from 02/12/2016. There is an unchanged small distal left ureteric calculus. Note is made of a 6 mm calculus at the right UVJ producing moderate hydroureteronephrosis. 2. 2.7 cm left ovarian cyst. Dictated by: Dictated on workstation # [id number]
--- NOTE | 2017-05-03 14:24 | Diagnostic Imaging Report ---
INDICATION: Right kidney stone. TIME OF EXAM: 2:35 p.m. COMPARISON: Correlation is made to prior study from 03/02/2017. FINDINGS: Bilateral renal calculi are again noted. Calcific density in the medial aspect of the right hemipelvis is noted correlating with the CT abnormality and consistent with a right UVJ calculus. The bowel gas pattern is unremarkable. Surgical clips are noted in the right upper quadrant. IMPRESSION: Bilateral nephrolithiasis and right UVJ calculus. Dictated by: Dictated on workstation # [id number]
[2017-05-03] MEDS ORDERED: ONDANSETRON 4 MG/2 ML (SDV) Z0FRAN IVP ONE (15:30)
[2017-05-03 16:30] VITALS: BP 112/70
[2017-05-03] MEDS ORDERED: KETOROLAC 15 MG/ML VIAL IV PRN (16:45)
[2017-05-03] MEDS ORDERED: ONDANSETRON 4 MG/2 ML (SDV) Z0FRAN IV PRN (16:45)
[2017-05-03] MEDS ORDERED: cefTRIAXone 1 GM/NS 100 ML IVPB IV SCH ×2 (17:00)
[2017-05-03] MEDS: NS IV 1000 ML 1,000 ML IV SCH (17:04)
[2017-05-03] MEDS ORDERED: INFLUENZA TRIvalent 2017-2018 0.5 ML/45 MCG SYR IM ONE (17:30)
--- NOTE | 2017-05-03 17:34 | HISTORY AND PHYSICAL ---
DATE OF SERVICE: CHIEF COMPLAINT: Right flank pain. HISTORY OF PRESENT ILLNESS: A 37-year-old white lady known to me for many years because of history of urolithiasis and a nonfunctioning right kidney, bilateral renal stones, was admitted through the emergency room because of right flank pain and a 5 to 6 mm stone in the right UVJ with obstruction. ALLERGIES: No known drug allergies. MEDICATIONS: Per chart. Family history of stones. Past history of stones and nonfunctioning left kidney. SURGERY LORD: Multiple procedures for stones, ERCP and cholecystectomy. PHYSICAL EXAMINATION: VITAL SIGNS: Per chart. GENERAL: Well nourished, well developed, in no acute distress at the time of my examination. HEENT: Head is normocephalic. ENT, unremarkable. NECK: Supple. No bruits. CHEST: Clear to auscultation, nontender. HEART: Regular rate and rhythm, no murmur. ABDOMEN: Soft with a 1+ right CVA tenderness. EXTREMITIES: Lower extremity, no edema or cyanosis. IMPRESSION: 1. Right distal ureteral stone with obstruction, pain. 2. Bilateral renal stones. 3. Nonfunctioning right kidney. PLAN: Tomorrow right ureteroscopy with stone lithotripsy, possible basket stent, ESWL or lithotomy. Procedures were explained to the patient with expectation of risks and complication. All her questions were answered. Job ID: [id number] DocumentID: [id number] Dictated Date: 05/03/2017 17:18:32 Computational Geneticist Date: 05/03/2017 17:34:23 Dictated By: JANUARY INTERIANO MD
[2017-05-03] MEDS ORDERED: MULT1TAB69 PO (18:04)
[2017-05-03] MEDS: fentaNYL INJECTION 100 MCG/2 ML AMP IV PRN (18:52)
[2017-05-03 19:45] VITALS: BP 119/69
[2017-05-04] VITALS: BP 107/56
[2017-05-04] MEDS: NS IV 1000 ML 1,000 ML IV SCH (00:43)
[2017-05-04] MEDS: fentaNYL INJECTION 100 MCG/2 ML AMP IV PRN ×2 (01:26→09:07)
[2017-05-04 04:00] VITALS: BP 109/63
[2017-05-04 06:23] LABS: BASOPHILS % (AUTO) 1 % (0-10); EOSINOPHILS # (AUTO) 0.1 10^3/uL (0.0-0.3); EOSINOPHILS % (AUTO) 2 % (0-10); HEMATOCRIT 35 % (35-52); HEMOGLOBIN 12.1 G/DL (11.5-16.0); LYMPHOCYTES # (AUTO) 1.3 X 10^3 (1.0-4.0); LYMPHOCYTES % (AUTO) 26 % (12-44); MEAN CORPUSCULAR HEMOGLOBIN 30 PG (25-34); MEAN CORPUSCULAR HGB CONC 34 G/DL (32-36); MEAN CORPUSCULAR VOLUME 87 FL (80-99); MEAN PLATELET VOLUME 9.9 FL (7.4-10.4); MONOCYTES # (AUTO) 0.6 X 10^3 (0.0-1.0); MONOCYTES % (AUTO) 11 % (0-12); NEUTROPHILS # (AUTO) 3.1 X 10^3 (1.8-7.8); NEUTROPHILS % (AUTO) 61 % (42-75); PLATELET COUNT 202 10^3/uL (130-400); RED BLOOD COUNT 4.08 10^6/uL (4.35-5.85); RED CELL DISTRIBUTION WIDTH 12.4 % (10.0-14.5); WHITE BLOOD COUNT 5.1 10^3/uL (4.3-11.0)
[2017-05-04] MEDS ORDERED: LACTATED RINGERS 1,000 ML IV PRN (06:27)
[2017-05-04 06:46] LABS: CALCIUM 8.1 MG/DL (8.5-10.1); CREATININE SERUM 1.13 MG/DL (0.60-1.30)
[2017-05-04] MEDS ORDERED: SEVOFLURANE (ULTANE) 15 ML INHAL SOLN ONE (06:49)
[2017-05-04] MEDS ORDERED: DEXAMETHASONE 10 MG/ML (DECADRON) 1 ML VIAL ONE (06:49)
[2017-05-04] MEDS ORDERED: proPOfol 200 MG/20 ML (DIPRIVAN) VIAL IV ONE (06:49)
[2017-05-04] MEDS ORDERED: LIDOCAINE PF 2% 5 ML (XYLOCAINE) VIAL ONE (06:49)
[2017-05-04] MEDS ORDERED: ONDANSETRON 4 MG/2 ML (SDV) Z0FRAN ONE ×2 (06:49→07:02)
[2017-05-04] MEDS ORDERED: fentaNYL INJECTION 100 MCG/2 ML AMP ONE (06:50)
[2017-05-04] MEDS ORDERED: MIDAZOLAM 2 MG/2 ML (VERSED) VIAL ONE (06:50)
--- NOTE | 2017-05-04 06:56 | Progress Note-Pre Operative ---
Pre-Operative Progress Note H&P Reviewed The H&P was reviewed, patient examined and no changes noted. Date Seen by Provider: May 04, 2017 Time Seen by Provider: 06:55 Date H&P Reviewed: May 04, 2017 Time H&P Reviewed: 06:55 Pre-Operative Diagnosis: RT DISTAL URETERAL STONE JANUARY INTERIANO MD May 04, 2017 06:56
[2017-05-04] MEDS ORDERED: SCOPOLAMINE 1.5 MG (TRANSDERM-SCOP) PATCH ONE (07:01)
[2017-05-04] MEDS ORDERED: FAMOTIDINE 20MG/2ML IV (PEPCID) ONE (07:02)
[2017-05-04] MEDS ORDERED: SCOPOLAMINE 1.5 MG (TRANSDERM-SCOP) PATCH TD ONE (07:15)
--- NOTE | 2017-05-04 07:42 | Progress Note-Post Operative ---
Post-Operative Progess Note Surgeon (s)/Sales Office Manager (s) Surgeon JANUARY INTERIANO MD Sales Office Manager: N/A Pre-Operative Diagnosis RT DISTAL URETERAL STONE Post-Operative Diagnosis SAME Procedure & Operative Findings Date of Procedure 05/04/17 Procedure Performed/Findings RT URETEROSCOPY WITH STONE LITHOTRIPSY Anesthesia Type GENERAL Estimated Blood Loss Estimated blood loss (mL): N/A Specimens/Packing Specimens Removed N/A Packing: N/A JANUARY INTERIANO MD May 04, 2017 7:42 am
--- NOTE | 2017-05-04 07:45 | Discharge Inst-Urology ---
Discharge Inst-Urology Discharge Medications New, Converted, or Re-newed RX: RX given to Patient/Fam Patient Instructions/Follow Up Plan Please make appointment to been seen in office in 4 weeks. Increase oral fluids for 48 hours and then as needed. Diet and Activity as tolerated. If questions or concerns contact your physician Or seek help at emergency department. JANUARY INTERIANO MD May 04, 2017 7:45 am
--- NOTE | 2017-05-04 07:58 | Anesthesia-General Post-Op ---
General Patient Condition Mental Status/LOC: Same as Preop Cardiovascular: Satisfactory Nausea/Vomiting: Absent Respiratory: Satisfactory Pain: Controlled Complications: Absent Post Op Complications Complications None Follow Up Care/Instructions Patient Instructions None needed. Anesthesia/Patient Condition Patient Condition Patient is doing well, no complaints, stable vital signs, no apparent adverse anesthesia problems. No complications reported per nursing. RAQUEL GRAHAM CRNA May 04, 2017 07:58
[2017-05-04] MEDS ORDERED: ONDANSETRON 4 MG/2 ML (SDV) Z0FRAN IVP PRN (08:15)
[2017-05-04 08:30] VITALS: BP 115/59
[2017-05-04 11:55] VITALS: BP 115/59
--- NOTE | 2017-05-04 11:58 | OPERATIVE REPORT ---
DATE OF SERVICE: 05/04/2017 PREOPERATIVE DIAGNOSES: Right distal ureteral stone and renal stones. POSTOPERATIVE DIAGNOSIS: Right distal ureteral stone and renal stones. OPERATION PERFORMED: Right ureteroscopy with stone lithotripsy. SURGEON: Geoffrey Interiano MD ANESTHESIA: General. COMPLICATIONS: None. PROCEDURE DESCRIPTION: Under satisfactory general anesthesia, the patient in lithotomy position, genitalia were prepped and draped in the usual sterile fashion. Cystoscopy was performed, essentially negative except for inflamed, swollen right intramural ureter. I went ahead and removed the cystoscope and inserted the 6.9 Japanese semi-rigid ureteroscope, visualized the stone, broken it up with a lithoclast completely, fragments flew into the bladder. I went with ureteroscope all the way up to the proximal ureter, up and down few times to make sure there are no more stones and the integrity of the ureter. There was no need for any stent. The ureteroscope was removed. The cystoscope was inserted to empty the bladder. The patient tolerated the procedure and anesthesia well and was sent to recovery room in stable condition. Job ID: [id number] DocumentID: [id number] Dictated Date: 05/04/2017 07:52:09 Advertising Designer Date: 05/04/2017 11:57:40 Dictated By: GEOFFREY INTERIANO MD
[2017-05-07] MEDS ORDERED: SCOPOLAMINE PATCH REMOVAL TP SCH (07:00)
== END 2017-05-04 11:55 | disposition home or self-care (01) ==
LOC: EDUNIT# 12:18 → ER 12:20 → 4TH 12:30 → UNDOADMOB 12:30 → 4TH 15:16
PROVIDERS: ADMIT Urology; ATTEND Urology
DX: N20.1 Calculus of ureter (principal); N20.0 Calculus of kidney; Q63.9 Congenital malformation of kidney, unspecified
CPT/HCPCS: 36415; 74018; 74176; 80048; 80053; 81000; 84703; 85025; 87081; 96361; 96374; 96375; 96376

== ENCOUNTER → 2017-12-28 | Outpatient (CLI) | payer BC ==
[~2017-12-28] MED LIST changes: +MULT1TAB69 PO
--- NOTE | 2017-12-28 20:41 | Diagnostic Imaging Report ---
INDICATION: Screening. EXAMINATION: Digital mammogram bilateral screening with 3-D tomosynthesis. The current study was also evaluated with a Computer Aided Detection (CAD) system. This study was compared to the prior exam of 04/12/2016. At this time, there are no current complaints. FINDINGS: The fibroglandular tissue in both breasts is heterogeneously dense. This does limit the sensitivity of this exam. In the interval since the previous study, a 12 mm parenchymal density has developed in the midportion of the right breast roughly 10 cm from the nipple on the craniocaudal view. This density seems to be in the superior aspect of the breast on the MLO view. I would recommend that a compression view of this area be obtained in both the CC and MLO projections for further study. Ultrasound should also be performed. The overall appearance of the breasts is otherwise no different. There is no primary or secondary sign of malignancy noted. IMPRESSION: Additional mammographic views and ultrasound of the right breast will be recommended for further study. ACR BI-RADS Category 0: Incomplete. (Needs additional imaging evaluation). Result letter will be mailed to the patient. Note: At least 10% of breast cancer is not imaged by mammography. Dictated by: Dictated on workstation # [id number]
== END ==
LOC: RAD 10:24
PROVIDERS: ATTEND Obstetrics & Gynecology
DX: Z12.31 Encounter for screening mammogram for malignant neoplasm of breast (principal)
CPT/HCPCS: 77067

== ENCOUNTER → 2018-01-10 | Outpatient (CLI) | payer BC ==
--- NOTE | 2018-01-10 20:37 | Diagnostic Imaging Report ---
INDICATION: Abnormal right mammogram. Correlation is made with diagnostic mammogram earlier the same day and screening mammogram from 12/28/2017. Sonographic interrogation of the upper and inner right breast was performed. No solid or cystic mass is detected. No sonographic abnormality is seen. IMPRESSION: No sonographic abnormality is identified to account for the area of slight nodularity in the upper-inner posterior right breast on mammogram. Mammographic features are fairly benign. Even so, followup right mammogram in 6 months is recommended to confirm stability. ACR BI-RADS Category 3: Probably benign findings. Dictated by: Dictated on workstation # [id number]
--- NOTE | 2018-01-10 21:50 | Diagnostic Imaging Report ---
INDICATION: Right breast density. EXAM: The patient presents for additional views. CORRELATION is made with recent screening study from 12/28/2017. TECHNIQUE: Unilateral right 2-D and 3-D diagnostic mammography was performed including spot compression CC and ML views as well as rolled CC and conventional 90 degree lateral view. There is some persistent nodular density in the upper and inner aspect of the right breast approximately 10 cm from the nipple. This has the appearance of a cluster of cysts. No associated microcalcifications are seen. IMPRESSION: BI-RADS 0. Persistent density in the upper inner right breast, posterior depth, as described. Further evaluation with ultrasound is recommended and will be performed today. ACR BI-RADS Category 0: Incomplete. (Needs additional imaging evaluation). Result letter will be mailed to the patient. Note: At least 10% of breast cancer is not imaged by mammography. Dictated by: Dictated on workstation # [id number]
== END ==
LOC: RAD 12:56
PROVIDERS: ATTEND Obstetrics & Gynecology
DX: R92.2 Inconclusive mammogram (principal)

== ENCOUNTER 2018-06-20 09:28 | Outpatient (RCR) | payer BC ==
--- NOTE | 2018-06-01 15:42 | Diagnostic Imaging Report ---
INDICATION: Kidney stones. TIME OF EXAM: 02:33 p.m. COMPARISON: Correlation is made with prior abdominal radiograph from 05/03/2017. FINDINGS: Calcific densities overlie the renal shadows bilaterally consistent with kidney stones. This is somewhat obscured by overlying bowel gas. No definite calculi along the course of the ureters are identified. Surgical clips are noted in the gallbladder fossa. Bowel gas pattern is unremarkable. IMPRESSION: Bilateral renal calculi. Dictated by: Dictated on workstation # [id number]
== END 2018-08-30 | disposition still patient (30) ==
LOC: RAD 09:28
PROVIDERS: ATTEND Urology
DX: N20.0 Calculus of kidney (principal)
CPT/HCPCS: 74018; 82140; 82340; 82507; 82570; 83735; 83945; 83986; 84105; 84133; 84300; 84392; 84560

== ENCOUNTER → 2018-08-07 | Outpatient (CLI) | payer BC ==
--- NOTE | 2018-08-07 14:00 | Diagnostic Imaging Report ---
INDICATION: Six-month followup. COMPARISON: 12/28/2017, 04/12/2016, and 01/10/2018. FINDINGS: There are scattered fibroglandular densities in the right breast. Note is again made of a nodular density in the upper outer right breast. There is no other dominant mass, spiculated lesion, or suspicious calcification identified. Ultrasound was not repeated as this nodular density was not seen on the prior ultrasound. IMPRESSION: Benign findings. The patient should resume bilateral screening mammography in December 2018. ACR BI-RADS Category 2: Benign findings. Result letter will be mailed to the patient. Note: At least 10% of breast cancer is not imaged by mammography. Dictated by: Dictated on workstation # [id number]
== END ==
LOC: RAD 13:00
PROVIDERS: ATTEND Obstetrics & Gynecology
DX: Z09 Encounter for follow-up examination after completed treatment for conditions other than malignant neoplasm (principal)

== ENCOUNTER 2019-06-21 15:08 | Outpatient (RCR) | payer BC ==
[~2019-06-21 15:08] MED LIST changes: +MULT-567 PO; -MULT1TAB69 PO; -TAMS0.4C98 PO; +TMSL.4C PO
--- NOTE | 2019-06-21 18:58 | Diagnostic Imaging Report ---
INDICATION: History of renal stones. TECHNIQUE: 2 supine view of the abdomen 3:57 PM CORRELATION STUDY: 11/19/2018 FINDINGS: Moderate amount of stool is present obscuring detail. 7 mm calcification projecting over the central aspect of the left kidney, stable. Faint calcification of the right renal silhouette persists. Densities in the pelvis likely reflect tubal ligation clips. The known distal ureteral stones on prior CT imaging not visualized on the current study. There is no definitive calcification over the expected course of either ureter. IMPRESSION: 1. Bilateral renal stones. No definitive ureteric calcification. Dictated by: Dictated on workstation # [id number]
== END 2019-09-19 | disposition home or self-care (01) ==
LOC: RAD 15:08 → EDSTATUS 07-17 11:42
PROVIDERS: ATTEND Urology
DX: N20.0 Calculus of kidney (principal)
CPT/HCPCS: 36415; 74018; 82140; 82340; 82507; 82570; 83735; 83945; 83986; 84105; 84133; 84300; 84392; 84560

== ENCOUNTER → 2020-07-28 | Outpatient (CLI) | payer BC ==
--- NOTE | 2020-07-29 12:33 | Diagnostic Imaging Report ---
INDICATION: Routine screening. Comparison is made prior mammogram from 12/28/2017 and 04/12/2016. 2-D and 3-D bilateral screening mammography was performed with CAD. Both breasts remain heterogeneously dense, limiting the sensitivity of mammography. The parenchymal pattern is stable. No mass or malignant appearing microcalcifications are seen. Axillae are unremarkable. IMPRESSION: BI-RADS Category 1 No mammographic features suspicious for malignancy are identified. ACR BI-RADS Category 1: Negative. Result letter will be mailed to the patient. Note: At least 10% of breast cancer is not imaged by mammography. Dictated by: Dictated on workstation # [id number]
== END ==
LOC: RAD 14:57
PROVIDERS: ATTEND Nurse Practitioner Family
DX: Z12.31 Encounter for screening mammogram for malignant neoplasm of breast (principal)
CPT/HCPCS: 77063; 77067

== ENCOUNTER → 2021-08-04 | Outpatient (CLI) | payer BC ==
--- NOTE | 2021-08-04 13:18 | Diagnostic Imaging Report ---
INDICATION: Routine screening. COMPARISON: 07/28/2020 and 12/28/2017. TECHNIQUE: 2D and 3D bilateral screening mammography was performed with CAD. FINDINGS: Both breasts are heterogeneously dense, limiting the sensitivity of mammography. The overall parenchymal pattern appears to be stable. No mass or malignant-appearing microcalcifications are seen. The axillae are unremarkable. IMPRESSION: No mammographic features suspicious for malignancy are identified. ACR BI-RADS Category 1: Negative. Result letter will be mailed to the patient. Note: At least 10% of breast cancer is not imaged by mammography. Dictated by: Dictated on workstation # [id number]
== END ==
LOC: RAD 10:27
PROVIDERS: ATTEND Nurse Practitioner Family
DX: Z12.31 Encounter for screening mammogram for malignant neoplasm of breast (principal)
CPT/HCPCS: 77063; 77067

== ENCOUNTER → 2021-08-11 | Outpatient (CLI) | payer BC ==
--- NOTE | 2021-08-11 15:41 | Diagnostic Imaging Report ---
INDICATION: Nephrolithiasis Supine images of the abdomen are obtained with comparison made to study of 06/21/2019. There has been an increase in bilateral renal stone burden. There is an approximately 1.1 cm collection of calcification projecting over the lower pole of the left kidney. There is an approximately 0.7 cm region calcification projecting over the upper pole of the right kidney. There is stool which overlies both kidneys and limits evaluation. Calcified phleboliths are seen in the pelvis without evidence of new calculus along the course of either ureter. IMPRESSION: Mild worsening of bilateral nephrolithiases without ureteric stone appreciated. Dictated by: Dictated on workstation # [id number]
== END ==
LOC: RAD 14:14
PROVIDERS: ATTEND Urology
DX: N20.0 Calculus of kidney (principal)
CPT/HCPCS: 74018

== ENCOUNTER → 2021-08-18 | Outpatient (CLI) | payer BC ==
--- NOTE | 2021-08-18 11:41 | Diagnostic Imaging Report ---
INDICATION: Nephrolithiasis. TIME OF EXAM: 11:20 a.m. COMPARISON: Correlation is made with prior radiograph from 08/11/2021. FINDINGS: Calcific densities overlying bilateral renal shadows appear similar to examination from one week earlier. No definite calculi along the course of the ureters are identified. Right pelvic calcification is similar. The bowel gas pattern is nonobstructed. IMPRESSION: Bilateral nephrolithiasis, similar in appearance to the examination from one week earlier. Dictated by: Dictated on workstation # [id number]
== END ==
LOC: RAD 11:06
PROVIDERS: ATTEND Urology
DX: N20.0 Calculus of kidney (principal)
CPT/HCPCS: 36415; 74018; 82140; 82340; 82507; 82570; 83735; 83945; 83986; 84105; 84133; 84300; 84392; 84560